=== PATIENT | female | born 1955 | race Caucasian/White ===

== ENCOUNTER 2016-08-28 14:04 | Observation (INO) | payer OTHER ==
[~2016-08-28] VITALS: Ht 177.8 cm; Wt 105.1 kg
--- NOTE | 2016-08-28 14:05 | ED.REPORT ---
HPI-Stroke / CVA Aug 28, 2016 ED Provider: MD Stephan This is a 60 year old with a history of hypertension and asthma female with a history of double vision presenting to the emergency department via EMS due to double vision that began 2 hours ago. Pt lunch when she developed sudden onset double vision, denies blurry vision. Double vision is significantly improved in the ED but there is some residual vision changes. Last known normal at 1215. Denies nausea, lightheadedness, dizziness, change LOC, problem walking, numbness or tingling in extremities, facial droop, or slurred speech. Nursing Notes Stated Complaint: POSSIBLE STROKE Nursing Notes Reviewed: Yes Allergies: Coded Allergies: Sulfa (Sulfonamide Antibiotics) (Verified Allergy, Intermediate, Hives, 08/28/16) morphine (Verified Adverse Reaction, Severe, N/V, 04/24/09) cephalexin (Verified Adverse Reaction, Intermediate, Nausea,Vomiting, ) Scheduled Cyanocobalamin (Vitamin B12) 500 Mcg Tablet 500 MCG PO DAILY (Reported) Estradiol (Estradiol) 0.5 Mg Tablet 0.5 MG PO DAILY (Reported) Magnesium Amino Acid Chelate (Magnesium) 100 Mg Tablet 100 MG PO DAILY (Reported ) Magnesium Citrate (Magnesium Citrate) 100 Mg Tablet 100 MG PO DAILY (Reported) Metoprolol Succinate ER (Metoprolol Succinate ER) 25 Mg Tab.er.24h 50 MG PO DAILY (Reported) Multivitamin (Once Daily) 1 Each Tablet 1 EACH PO DAILY (Reported) Potassium Chloride ER (Potassium Chloride ER) 20 Meq Tablet.er 20 MEQ PO DAILY ( Reported) TAKE WITH FOOD Scheduled PRN Acetaminophen (Acetaminophen) 325 Mg Tablet 650 MG PO Q4H PRN PRN For Pain ( Reported) Albuterol HFA (Proair HFA) 8.5 Gm Hfa.aer.ad 2 PUFFS INHALATION Q4H PRN PRN For Shortness of Breath (Reported) Loratadine (Claritin) 10 Mg Capsule 10 MG PO DAILY PRN PRN For Congestion ( Reported) Propylene Glycol/Peg 400 (Systane Liquid Gel Eye Drops) 15 Ml Drp.lq.gel 2 DROP OP BID PRN PRN For Eye Irritation (Reported) General Time Seen by Provider: 14:02 Chief Complaint Vision, double Hx Obtained From: Patient, EMS Arrived By: Ambulance Time last known well 1215 Sudden in Onset?: Yes Symptom Duration: Since onset Progression Since Onset: Gradually improving Severity: Current: No pain currently Pertinent Negative: Pt denies other symptoms Recent Healthcare: No recent doctor visit, No recent hospitalization Similar Sx Previous: No Risk Factors )( TPA Administration/Criteria Stroke Thrombolytic Therapy : TPA Considered: Yes TPA Administered Intravenously: No, not indicated Relative Exclusion Crit: Rapidly improv stroke sym NIH Stroke Scale Level of Consciousness: Alert and responsive (0) Ask Month & Age: Both questions right (0) Open/Close Eyes/Hand Platform Stapler: Performs both tasks (0) Horizontal EO Movements: None (0) Visual Crowe: No visual loss (0) Facial Palsy: Normal symmetry (0) Right Arm Motor Drift (10s): No drift 10 sec (0) Left Arm Motor Drift (10s): No drift 10 sec (0) Right Leg Motor Drift (5s): No drift 5 sec (0) Left Leg Motor Drift (5s): No drift 5 sec (0) Limb Ataxia FNF/Heel-Lane: No ataxia (0) Sensation (Arms/Legs/Face): No sensory loss (0) Language Aphasia: No aphasia, normal (0) Dysarthria: No dysarthria, normal (0) Extinction/Inattention: No exctinct/inattent (0) Time NIHSS Performed: 14:17 Date NIHSS Performed: Aug 28, 2016 Jackson Coma Score > Age 5 Eye Opening: Open spontaneously (4) Verbal Response: Oriented (5) Motor Response: Obeys commands (6) Jackson Coma Score: 15 Past Medical History Past Medical History Reports: Asthma, Hypertension Past Surgical History Hysterectomy Ambulatory Status Independent Review of Systems Constitutional: Denies: Chills, Fever Eyes: Reports: Blurred bilateral GI: Denies: Abdominal pain, Nausea, Vomiting Neurologic: Denies: Change LOC, Confusion, Dizziness, Headache, Lightheaded, Numbness, Problem walking, Weakness Complete sys rev & neg: except as marked. Physical Exam Initial Vital Signs Vital Signs (First) Date Time Temp Pulse Resp B/P Pulse Ox O2 Delivery O2 Flow Rate FiO2 08/28/16 14:14 36.7 83 20 187/84 97 Room Air - Initial VS: Reviewed ENT: Mucous membranes moist, Conjunctiva normal, No scleral icterus Abdomen / GI: Soft, Non-tender, No guarding, No rebound, No distention Extremities: Vascular intact, Neuro intact, No swelling, No tenderness Skin: Warm, Dry, No cyanosis Psychiatric: Mood/affect normal, Behavior normal, Normal thought content General/Constitutional: Awake, Alert Head / Eyes: Normocephalic, PERRL, EOMI, No nystagmus, No periorbital redness, No photophobia Neck: Supple, Full range of motion, No swelling, Non-tender, No carotid bruit Respiratory / Chest: Breath sounds NL, Breath sounds = bilat, No respiratory distress, No rales, No rhonchi, No wheezing Cardiovascular: Heart rate NL, Regular rhythm, Heart sounds NL, No murmurs, Peripheral circulation NL Neurologic: Oriented X3, Speech NL, No motor deficits, No sensory deficits, CN II - XII intact, Reflexes equal bilat, Cerebellar NL Interpretation & Diagnostics Interpretation & Diagnostics: BRAIN CT IMPRESSION: No acute process. Findings relayed to Dr. Rothman via ER front end developer designer staff Mihaela on 08.28.16 at 1415 hrs. This study fulfills neurological imaging criteria for inclusion or exclusion of acute stroke therapies based on available published neurological guidelines. Dictated by: Miguel Thomson M.D. on 08/28/2016 at 14:14 Approved by: Miguel Thomson M.D. on 08/28/2016 at 14:15 CT ANGIO IMPRESSION: 1. No intracranial vascular occlusion or hemodynamically significant stenosis. 2. Atherosclerotic calcifications noted in the origin of the right internal carotid artery which do not cause measurable stenosis. 3. The left internal carotid artery is fully patent. Dictated by: Josephine Mckinney MD, PhD on 08/28/2016 at 15:55 Approved by: Josephine Mckinney MD, PhD on 08/28/2016 at 16:03 Lab Results Interpretation Result Diagram: 08/28/16 1509 08/28/16 1509 Test 08/28/16 15:09 White Blood Count 7.0th/mm3 (3.8-10.1) Red Blood Count 4.53mil/mm3 (3.90-5.20) Hemoglobin 14.0g/dL (12.0-15.6) Hematocrit 41.1% (35.0-46.0) Mean Corpuscular Volume 90.7fL (81-100) Mean Corpuscular Hemoglobin 30.9pg (27.0-35.0) Mean Corpuscular Hemoglobin Concent 34.1% (32.0-37.0) Red Cell Distribution Width 12.0% (12.3-15.4) Platelet Count 218bil/L (150-400) Neutrophils (%) (Auto) 81.1% (40-74) Lymphocytes (%) (Auto) 11.5% (14-46) Monocytes (%) (Auto) 6.3% (4-12) Eosinophils (%) (Auto) 0.9% (0-5) Basophils (%) (Auto) 0.1% (0-3) Prothrombin Time 9.7sec (8.1-12.5) Prothromb Time International Ratio 0.91ratio Activated Partial Thromboplast Time 25.7sec (22.8-33.0) Sodium Level 138mEq/L (134-144) Potassium Level 3.7mEq/L (3.5-5.2) Chloride Level 100mEq/L (97-108) Carbon Dioxide Level 25mmol/L (18-29) Blood Urea Nitrogen 16mg/dL (6-24) Creatinine 0.81mg/dL (0.57-1.00) Estimat Glomerular Filtration Rate 104mL/min (>59) Glucose Level 109mg/dL (60-99) Calcium Level 9.5mg/dL (8.5-10.1) Magnesium Level 2.0mg/dL (1.6-2.6) Total Bilirubin 0.4mg/dL (0.0-1.2) Aspartate Amino Transf (AST/SGOT) 20U/L (0-50) Alanine Aminotransferase (ALT/SGPT) 18U/L (0-32) Alkaline Phosphatase 133U/L (25-165) Troponin T 0.023ug/L (0.0-0.011) Total Protein 7.2g/dL (6.4-8.4) Albumin 4.3g/dL (3.4-5.0) Hold Olivas Top Tube Received (Received) ECG Interpretation ECG Interpretation: NSR at rate of 70 Time: 15:37 Interpreted by: ED physician Re-Eval/Medical Decision Med Decision/Clinical Course 60-year-old female presenting with diplopia sudden onset or eating lunch. She presented within 2 hours and code stroke was called immediately. Her only neuro deficits on arrival was diplopia. It improved by arrival. CT head no hemorrhage. NIHSS 0. I consulted [place] neurology who recommended no TPA due to low NIH stroke scale. Recommended CT angiogram brain and neck which showed no acute pathology. Labs unremarkable. Patient's symptoms resolved while in the ER. Will be admitted for TIA, diplopia. Also troponins were mildly elevated 0.02. EKG no signs ischemia. We will trend. Given aspirin. Re-Evaluation/Progress : Time of Eval: 16:04 )( Re-Eval Neurologic Exam: Alert, Pt is back to baseline, Oriented X3, CN II - XII intact, Speech normal, No motor deficits, No sensory deficits, Reflexes equal bilat, Cerebellar normal Re-Evaluation/Progress Note: Symptoms are resovled. Pt at baseline, double vision is resolved. Discussed need for admission, pt understands and agrees with plan, all questions addressed. Consultation #1: Call Returned at: 14:24 Note: Consult with [place], Dr. Yoanna Yates does not recommend TPA, plan for CTA. Consultation #2: Referral / Consult Name: Niko Polanco MD Consulted With: Hospitalist Call Returned at: 16:42 Final Inspector Balance Wheel: Accepts admit Counseled Regarding: Diagnosis, Lab results, Need for follow-up, Need for admission Patient Discharge & Departure Impression: Primary Impression: TIA (transient ischemic attack) Transient cerebral ischemia type: unspecified Qualified Code: G45.9 - Transient cerebral ischemic attack, unspecified Additional Impressions: Diplopia Elevated troponin Disposition: ADMITTED TO HOSPITAL Discharge Condition All VS Reviewed: Yes Condition: Stable Referrals: Julio Pineda MD (PCP) Crit Care Except Billable Proc Time Spent: 30-74 minutes Services Performed: Patient management by me, Time spent at bedside, Reviewing test results, Reviewing imaging, Discussing patient care, Documentation in record, Time with fam/surrogate Scribe Attestation Portions of this note were transcribed by Alex Echeverria. I, Dr. Rothman personally performed the history, physical exam and medical decision-making; I reviewed and confirmed the accuracy of the information in the transcribed note. Signed by: jeremy Espinoza. 08/28/2016, 15:00. Bennett Rothman MD Aug 28, 2016 14:05 ALEX ECHEVERRIA 2, 2017 14:15
[2016-08-28 14:14] VITALS: BP 187/84; PULSE 83; RESP 20; O2SAT 97
--- NOTE | 2016-08-28 14:17 | DRSVH ---
PROCEDURE: CT BRAIN (TPA) ([id number]) INDICATIONS: Stroke TECHNIQUE: Noncontrast 4.5 mm thick angled axial sections acquired from the foramen magnum to the vertex, with c oronal reformats. COMPARISON: None. FINDINGS: Image quality: Excellent. CSF spaces: Basal cisterns are patent. No extra-axial fluid collections. The ventricles are symmet heber in size and shape. Brain: No intracranial bleeds or masses. There is cerebral volume loss for age, with resultant vent ricular and sulcal prominence. There are periventricular and deep white matter chronic small vessel ischemic changes. There is intracranial internal carotid artery atherosclerosis. Skull and face: Calvarium and visualized facial bones appear intact, without suspicious lesions. Sinuses: Visualized sinuses and mastoids are clear. IMPRESSION: No acute process. Findings relayed to Dr. Rothman via ER front maker staff Mihaela on 08.28.16 at 1415 hrs. This study fulfills neurological imaging criteria for inclusion or exclusion of acute stroke therapie s based on available published neurological guidelines. Dictated by: Miguel Thomson M.D. on 08/28/2016 at 14:14 Approved by: Miguel Thomson M.D. on 08/28/2016 at 14:15
--- NOTE | 2016-08-28 15:27 | NUR ---
Evaluation completed. Please go to "Notes" then click on "Assessments and Notes" (bottom left corner of screen). Then select appropriate discipline tab on top of screen.
[2016-08-28 15:32] LABS: BASOPHILS % (AUTO) 0.1 % (0-3); EOSINOPHILS % (AUTO) 0.9 % (0-5); MONOCYTES % (AUTO) 6.3 % (4-12); Mean Corpuscular Hemoglobin 30.9 pg (27.0-35.0); Mean Corpuscular Volume 90.7 fL (81-100); NEUTROPHILS % (AUTO) 81.1 % (40-74); Platelet Count 218 bil/L (150-400)
[2016-08-28 15:36] LABS: INR 0.92 ratio
[2016-08-28 15:38] LABS: TROPONIN T 0.023 ug/L (0.0-0.011)
[2016-08-28 15:58] VITALS: BP 167/80; PULSE 73; RESP 20; O2SAT 98
--- NOTE | 2016-08-28 16:05 | DRSVH ---
PROCEDURE: CT ANGIO BRAIN NECK TPA INDICATIONS: STAT READ - CALL ED PROVIDER W/RESULTS TECHNIQUE: Pre-contrast 4.5 mm thick sections acquired from the foramen magnum to the vertex. After the adminis tration of intravenous contrast, 1 mm thick sections acquired from the aortic arch through the [place]. Post-contrast 4.5 mm thick sections then re-acquired from the foramen magnum to the vert ex. 3-dimensional ojkmotn-vdcduafot-jlbraffuqe (MIP) and/or volume rendering reformats were acquired of the central intracranial vasculature and neck separately. For radiation dose reduction, the foll owing was used: automated exposure control, adjustment of mA and/or kV according to patient size. COMPARISON: [facility], CT, BRAIN (TPA), 08/28/2016, 14:08. FINDINGS: Image quality: Excellent. BRAIN: CSF spaces: Ventricles are normal in size and shape. Basal cisterns are patent. No extra-axial flu id collections. Brain: No midline shift. No intracranial bleeds or masses. [place]bitt-white matter interface appears int act. Skull and face: Calvarium and facial bones appear intact, without suspicious lesions. Orbits appear normal. Sinuses: Sinuses and mastoids are clear. HEAD CT ANGIOGRAPHY: Anterior circulation: Intracranial internal carotid arteries are normal in size and flow. The flow within the paired anterior cerebral arteries is normal and symmetric. The flow within the middle cer ebral arteries is normal and symmetric. The anterior communicating artery is seen. No aneurysms are seen. Posterior circulation: Visualized portions of the vertebral arteries demonstrate normal caliber, and join to form a normal appearing basilar artery. Flow within the posterior cerebral arteries is norm al and symmetric. 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 No aneurysms are seen. NECK CT ANGIOGRAPHY: Carotid system: The great vessels demonstrate a conventional anatomy as they arise from the aortic a rc. The origins of the common carotid arteries appear patent. The common carotid arteries demonstr ate normal caliber and courses. The bifurcation regions are both widely patent. Atherosclerotic calc ification noted in the origin of the right internal carotid artery which does not cause measurable st enosis. Incidental note made of bilateral internal carotid pharyngeal loops. Posterior circulation: The origins of the vertebral arteries both appear widely patent. The more ramirez perior extracranial portions of both vertebral arteries also demonstrate normal courses and calibers. They join to form a normal appearing basilar artery. Soft tissues: Visualized neck soft tissues demonstrate no suspicious abnormalities. Bones: No suspicious bony lesions. Degenerative disc disease and facet arthropathy are noted in the cervical spine. Visualized cervical spine appears normally aligned. IMPRESSION: 1. No intracranial vascular occlusion or hemodynamically significant stenosis. 2. Atherosclerotic calcifications noted in the origin of the right internal carotid artery which do n ot cause measurable stenosis. 3. The left internal carotid artery is fully patent. Dictated by: Josephine Mckinney MD, PhD on 08/28/2016 at 15:55 Approved by: Josephine Mckinney MD, PhD on 08/28/2016 at 16:03
[2016-08-28] MEDS ORDERED: Alum-Mag Hydrox-Simeth 30 mL Suspension PO PRN (16:45)
[2016-08-28] MEDS ORDERED: Polyethylene Glycol (PEG) 17 Gm Powder PO PRN (16:45)
[2016-08-28] MEDS ORDERED: Labetalol 5 mg/mL 4 mL Inj IVPUSH PRN (16:45)
[2016-08-28] MEDS ORDERED: Ondansetron 2 mg/mL 2 mL Inj IV PRN (16:45)
[2016-08-28] MEDS ORDERED: LORA10CA PO (16:49)
[2016-08-28] MEDS ORDERED: POTA-62 PO (16:49)
[2016-08-28] MEDS ORDERED: MULT-666 PO (16:49)
[2016-08-28] MEDS ORDERED: ESTR0.5T PO (16:49)
[2016-08-28] MEDS ORDERED: ACET325T51 PO (16:49)
[2016-08-28] MEDS ORDERED: MAGN100T5 PO (16:49)
[2016-08-28] MEDS ORDERED: CYAN500 PO (16:49)
[2016-08-28] MEDS ORDERED: METO25TA99 PO (16:49)
[2016-08-28] MEDS ORDERED: MAGN100T6 PO (16:50)
[2016-08-28] MEDS ORDERED: PROP15DR27 OP (16:50)
[2016-08-28] MEDS ORDERED: ALBU8.5H2 INHALATION (16:58)
[2016-08-28 17:13] LABS: INR 0.91 ratio
--- NOTE | 2016-08-28 17:13 | NUR ---
Admit nurse note Admission assessment completed in the ER. Pt. denies complaints at present. States she had a sudden onset of blurred/double vision and lightheadedness while she was sitting down for lunch. PT. is concerned about a stroke as she recently changed her estrogen due to insurance coverage change. Allergies updated and sticker placed on nameband. MEd rec completed per pt recall and PCP list. Pt. is normally independent and lives at home with her . Declines advance directives information and flu shot. Report given to Michelle Green.
--- NOTE | 2016-08-28 17:22 | NUR ---
Admit Pt admitted from ED to [facility] room 3005, report received from Steph Suarez RN. Pt alert and oriented x4, able to transfer self to bed, steady gait observed. Reported by ED swallow evaluation by speech therapy was completed, and general diet was ordered.
[2016-08-28 17:25] VITALS: PULSE 68
[2016-08-28 17:35] VITALS: BP 152/70; PULSE 65; RESP 18; O2SAT 98
[2016-08-28 19:20] LABS: APPEARANCE,URINE CLEAR (CLEAR,HAZY); COLOR,URINE YELLOW (YELLOW)
[2016-08-28 19:21] LABS: OCCULT BLOOD,URINE NEGATIVE (NEGATIVE); UROBILINOGEN,URINE NORMAL (NORMAL)
[2016-08-28 20:00] VITALS: PULSE 70
--- NOTE | 2016-08-28 20:39 | PCM.HPMED ---
Subjective Date of Service Aug 28, 2016 Primary Provider: Admitting Physician: Niko Polanco MD Primary Care Physician: Mari Cameron MD Attending Physician: Niko Polanco MD Chief Complaint: Possible stroke, sudden onset diplopia History of Present Illness: 60 year old with a history of hypertension and asthma female with a history of double vision presenting to the emergency department via EMS due to double vision that began 2 hours ago. Pt lunch when she developed sudden onset double vision, denies blurry vision. Double vision is significantly improved in the ED but there is some residual vision changes. Last known normal at 1215. Denies nausea, lightheadedness, dizziness, change LOC, problem walking, numbness or tingling in extremities, facial droop, or slurred speech. Patient tells me she was feeling fine up until lunch time, she got a couple bites into her soup and suddenly felt extremely strange. She had a visual disturbance. She tried covering one eye and then the other to see if that would change think she stated it did not do anything. She became extremely anxious felt like her heart was pounding. And called her primary doctor who sent her to the urgent care. Urgent care hurt her story in [place] directly to the emergency room. By this point in time most of her symptoms were dissipating. I told her in the future that if she thought she was having a stroke which she thought she was she should go directly to the emergency room. Review of Systems: Gen.: No fevers chills weight loss weight gain Eyes: Visual disturbance as described above HEENT: No nose/throat drainage, no pain in ears or throat, no hearing loss Lymph: No lymph nodes noted Cardiac: No chest pain, orthopnea, PND, palpitations , pedal edema or dyspnea on exertion, heart pounding during the event Pulmonary: no cough, wheezing or bringing up of sputum GI: No anorexia nausea vomiting blood or black in the stool : no dysuria hematuria urinary frequency or decrease in urine output Musculoskeletal: Joint swelling no joint pain no new muscle aches or back pain Neuro: No syncope, seizures no loss of consciousness no new focal weakness, numbness or tingling Psychiatric: New new insomnia or depression, anxiety during the event Endocrine: No new heat or cold intolerances polyuria or polydipsia Hematology: No lymphadenopathy or easy bleeding or bruising noted skin: No new rashes, stasis dermatitis Allergies Coded Allergies: Sulfa (Sulfonamide Antibiotics) (Verified Allergy, Intermediate, Hives, 08/28/16) morphine (Verified Adverse Reaction, Severe, N/V, 04/24/09) cephalexin (Verified Adverse Reaction, Intermediate, Nausea,Vomiting, ) Home Medications Cyanocobalamin (Vitamin B12) 500 Mcg Tablet 500 MCG PO DAILY (Reported) Estradiol (Estradiol) 0.5 Mg Tablet 0.5 MG PO DAILY (Reported) Magnesium Amino Acid Chelate (Magnesium) 100 Mg Tablet 100 MG PO DAILY (Reported ) Magnesium Citrate (Magnesium Citrate) 100 Mg Tablet 100 MG PO DAILY (Reported) Metoprolol Succinate ER (Metoprolol Succinate ER) 25 Mg Tab.er.24h 50 MG PO DAILY (Reported) Multivitamin (Once Daily) 1 Each Tablet 1 EACH PO DAILY (Reported) Potassium Chloride ER (Potassium Chloride ER) 20 Meq Tablet.er 20 MEQ PO DAILY ( Reported) TAKE WITH FOOD Scheduled PRN Acetaminophen (Acetaminophen) 325 Mg Tablet 650 MG PO Q4H PRN PRN For Pain ( Reported) Albuterol HFA (Proair HFA) 8.5 Gm Hfa.aer.ad 2 PUFFS INHALATION Q4H PRN PRN For Shortness of Breath (Reported) Loratadine (Claritin) 10 Mg Capsule 10 MG PO DAILY PRN PRN For Congestion ( Reported) Propylene Glycol/Peg 400 (Systane Liquid Gel Eye Drops) 15 Ml Drp.lq.gel 2 DROP OP BID PRN PRN For Eye Irritation (Reported) [facility] Patient reports she sees a drug enforcement administration agent Dr. Pettit (?sp) in [place]. She tells me that she takes metoprolol not for high blood pressure but for low heart rate and since she has been on this medication she is actually felt better. I wonder if she does not have tachybradycardia syndrome Asthma, Hypertension Past Surgical History Hysterectomy Ambulatory Status Independent Social Patient is a nonsmoker occasional drinker Family history positive for breast cancer in her mother in her 70s and her father had a CVA in his 70s Social History Hx Alcohol Use: No Hx Substance Use: No Exam Vital Signs Vital Sign - Last Date Time Temp Pulse Resp B/P Pulse Ox O2 Delivery O2 Flow Rate FiO2 08/28/16 17:35 37.0 65 18 152/70 98 Room Air Exam Gen.- A+ O 3 no apparent distress. Heavyset female with blue hair sitting up in Eyes- open conjunctiva clear, pupils equal nonicteric, pupils equal and reactive extraocular muscles intact, vision intact at this time Mouth- oral mucosa moist, no exudate, dentition intact ENT- ears normal, nose normal Neck- supple/trach midline CVS- RRR no murmur or gallop Lungs- CTA GI- NABS/NT soft Musc- moving 4 no obvious deformity Neuro- cranial nerves II through XII intact to gross examination, nonfocal Skin- warm and dry, no rashes/lesions/wounds noted Psych- pleasant and appropriate, Lab and Diagnostics Labs UA clear, troponin 0.023, magnesium 2.0, LFTs WNL Result Diagram: 08/28/16 1509 08/28/16 1509 12-lead ECG EKG concurrently reviewed by me sinus with a rate of 70 QTc 418 ms Assessment & Plan 60-year-old female so than onset diplopia normal CT scan working up TIA Diplopia/TIA- starting aspirin, statin allowing permissive hypertension, echo , telemetry PT eval, lipids in a.m. along with TSH monitor for potential A. fib Elevated agzarqfm-swgihv-pr trops., EKG is absolutely normal no cardiac complaints no dyspnea no chest pain. Second troponin is in higher at 0.34 I am getting CK+ CK/MB as patient is absolutely no cardiac symptoms and her EKG looked so benign that it seems that this is almost certainly a false positive. Echocardiogram being obtained to get TIA workup but I am not getting stress testing at this point in time will allow a.m. team to decide whether this is warranted. HTN- holding home metoprolol continue when necessary labetalol SBP greater than 220, permissive hypertension Estrogen replacement- holding secondary to possible hypercoagulable state Allergies- loratadine not ordered Prophylaxis-DVT patient has SCDs I am not feeling that she needs heparin I think she is ambulatory and going to discharge tomorrow, GI not indicated Disposition- from home full code I am expecting this patient to discharge home tomorrow after echocardiogram is normal. I am expecting normal CK and CK-MB and hopefully troponins normalize and do not require any further investigation.. I am not even certain that I think she should be on an aspirin although that is the simplest intervention to treat both possible TIA and positive cardiac enzyme. I am not ordering an MRI at this point in time as her symptoms seem to have totally resolved and she does not have risk factors my only other concern is that this could be an early manifestation of MS. This was not discussed with her. VTE Mechanical Devices: Intermittant Pneumatic CD Niko Polanco MD Aug 28, 2016 20:39
[2016-08-28] MEDS ORDERED: Artificial Tears 15 mL Ophthalmic Solution BOTH_EYES PRN (20:40)
[2016-08-28 21:18] VITALS: BP 149/85; PULSE 65; RESP 18; O2SAT 97
[2016-08-28 22:50] LABS: TROPONIN T 0.037 ug/L (0.0-0.011)
--- NOTE | 2016-08-28 23:38 | NUR ---
Critical Troponin Patient's second troponin came back at 0.037, up from 0.023. paged, new order for stat EKG, and to add CKMB labs to ordered Troponin labs, starting with the 2130 order. Orders entered. EKG showed sinus rhythm, 67. technical specialist cytogenetics reports no ectopy. Vital signs stable, patient denies chest pain, palpitations, shortness of breath. Patient updated on lab value. Will continue to monitor.
[2016-08-29] VITALS (7 sets, daily range): BP systolic 130–150; BP diastolic 76–86; PULSE 57–78; RESP 14–19; O2SAT 95–99
[2016-08-29 05:45] LABS: BASOPHILS % (AUTO) 0.3 % (0-3); EOSINOPHILS % (AUTO) 2.3 % (0-5); MONOCYTES % (AUTO) 7.8 % (4-12); Mean Corpuscular Hemoglobin 31.2 pg (27.0-35.0); Mean Corpuscular Volume 91.8 fL (81-100); NEUTROPHILS % (AUTO) 68.5 % (40-74); Platelet Count 218 bil/L (150-400)
[2016-08-29 06:45] LABS: Creatine Kinase 69 U/L (21-215)
[2016-08-29] MEDS ORDERED: Albuterol 2.5 mg/3 mL Inhalation Solution NEB PRN (07:00)
[2016-08-29] MEDS: Potassium Chloride 20 mEq SR Tablet PO SCH (08:18)
--- NOTE | 2016-08-29 08:27 | NUR ---
Social Work: Screening Data: Pt is a 60 y/o female admitted for TIA, elevated troponin. Pt's PCP is Dr Cameron, pt's insurance is [employer]. EMR reviewed. Pt declines AD/DPOA, declined information offered. No d/c planning needs anticipated at this time. 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 Assessment: Pt who is independent at baseline. Plan: Pt will d/c home via POV when medically stable. No d/c planning needs anticipated at this time. 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 ROBEL Marley
--- NOTE | 2016-08-29 13:58 | DRSVH ---
PROCEDURE: MRI BRAIN WITHOUT CONTRAST ([id number]) INDICATIONS: TIA TECHNIQUE: Non-contrast axial T1 spin echo, axial T2 fast spin echo, sagittal and axial FLAIR, coronal T2 fast s pin echo, axial gradient echo, axial diffusion and ADC through the brain. COMPARISON: [facility], CT, CT ANGIO BRAIN NECK TPA, 08/28/2016, 15:19. FINDINGS: Image quality: Excellent. CSF spaces: Ventricles appear symmetric in size and shape. Basal cisterns are patent. No extra-axi al fluid collections. Brain: No intracranial bleeds or mass effects. There is cerebral volume loss for age. There is a m ild degree of patchy high FLAIR signal within the periventricular and subcortical white matter, which is nonspecific. Brainstem appears normal. Diffusion-weighted images show no acute ischemic insults. No chronic ischemic insults. Normal intravascular flow voids are present. Skull and face: Calvarial bone marrow is normal in signal. Orbits are normal. Sinuses: Sinuses and mastoids are clear. IMPRESSION: 1. No acute process. No recent infarct. 2. Mild degree of nonspecific white matter signal, consistent with small vessel ischemic disease, vas culitides, diabetes mellitus, or demyelinating disorders, such as multiple sclerosis. Dictated by: Miguel Thomson M.D. on 08/29/2016 at 13:55 Approved by: Miguel Thomson M.D. on 08/29/2016 at 13:57
[2016-08-29 15:05] LABS: TROPONIN T < 0.010 ug/L (0.0-0.011)
[2016-08-29 15:14] LABS: Creatine Kinase 63 U/L (21-215)
--- NOTE | 2016-08-29 16:31 | NUR ---
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 She was pleasant and conversational but stated no spiritual needs at this time. Spiritual care will follow if needed.
--- NOTE | 2016-08-29 20:34 | PCM.PNMED ---
Subjective Date of Service Aug 29, 2016 Subjective Patient is a 60 year-old female chronically on estrogen who came in after having a period of blurry vision which resolved. This morning she states that she is feeling back to normal. Her blurry vision actually had resolved yesterday. She denies any dizziness, vision changes, nausea, diarrhea, confusion. Exam Vital Signs Vital Sign - Last Date Time Temp Pulse Resp B/P Pulse Ox O2 Delivery O2 Flow Rate FiO2 08/29/16 17:42 36.7 70 16 130/76 95 Room Air Intake and Output 08/28/16 08/28/16 08/29/16 Cumulative From/Thru 15:00 23:00 07:00 08/28/16 14:14 - 08/29/16 06:26 Intake Total 120 ml 400 ml 520 ml Output Total 200 ml 1000 ml 1200 ml Balance -80 ml -600 ml -680 ml Intake Oral 120 ml 400 ml 520 ml Output Urine Total 200 ml 1000 ml 1200 ml # Voids 1 1 # Bowel Movements 0 0 Exam General: Pleasant, obese, in bed in no acute distress HEENT: PERRL, EOMI, sclera anicteric CV: regular rate and rhythm, pulses equal B/L radial and posterior tibial Pulmonary: clear to auscultation B/L, no wheezing, rhonchi or rales Abd: soft, non-tender, bowel sounds present Extremities: no LE edema, no calf tenderness Neuro: CN II-XII intact, no limb ataxia, sensation intact to light touch, 5/5 strength UE & LE and equal B/L. Psych: Appropriate mood and effect . IVs and Medications Medications Reviewed: Medications were reviewed in detail Lab and Diagnostics Result Diagram: 08/29/16 0535 08/29/16 0535 X-Rays, CTs and MRIs 08/28/16 CT BRAIN (TPA) ([id number]) INDICATIONS: Stroke TECHNIQUE: Noncontrast 4.5 mm thick angled axial sections acquired from the foramen magnum to the vertex, with coronal reformats. COMPARISON: None. FINDINGS: Image quality: Excellent. CSF spaces: Basal cisterns are patent. No extra-axial fluid collections. The ventricles are symmetric in size and shape. Brain: No intracranial bleeds or masses. There is cerebral volume loss for age , with resultant ventricular and sulcal prominence. There are periventricular and deep white matter chronic small vessel ischemic changes. There is intracranial internal carotid artery atherosclerosis. Skull and face: Calvarium and visualized facial bones appear intact, without suspicious lesions. Sinuses: Visualized sinuses and mastoids are clear. IMPRESSION: No acute process. Findings relayed to Dr. Rothman via ER front end loader driver staff Mihaela on 08.28.16 at 1415 hrs. This study fulfills neurological imaging criteria for inclusion or exclusion of acute stroke therapies based on available published neurological guidelines. Dictated by: Miguel Thomson M.D. on 08/28/2016 at 14:14 Approved by: Miguel Thomson M.D. on 08/28/2016 at 14:15 08/28/16 CT ANGIO BRAIN NECK TPA INDICATIONS: STAT READ - CALL ED PROVIDER W/RESULTS TECHNIQUE: Pre-contrast 4.5 mm thick sections acquired from the foramen magnum to the vertex. After the administration of intravenous contrast, 1 mm thick sections acquired from the aortic arch through the [place]. Post-contrast 4.5 mm thick sections then re-acquired from the foramen magnum to the vertex. 3- dimensional hlskrkb-ihiizkwii-wtwwwgknuw (MIP) and/or volume rendering reformats were acquired of the central intracranial vasculature and neck separately. For radiation dose reduction, the following was used: automated exposure control, adjustment of mA and/or kV according to patient size. COMPARISON: [facility], CT, BRAIN (TPA), 08/28/2016, 14:08. FINDINGS: Image quality: Excellent. BRAIN: CSF spaces: Ventricles are normal in size and shape. Basal cisterns are patent. No extra-axial fluid collections. Brain: No midline shift. No intracranial bleeds or masses. [place]-white matter interface appears intact. Skull and face: Calvarium and facial bones appear intact, without suspicious lesions. Orbits appear normal. Sinuses: Sinuses and mastoids are clear. HEAD CT ANGIOGRAPHY: Anterior circulation: Intracranial internal carotid arteries are normal in size and flow. The flow within the paired anterior cerebral arteries is normal and symmetric. The flow within the middle cerebral arteries is normal and symmetric. The anterior communicating artery is seen. No aneurysms are seen. Posterior circulation: Visualized portions of the vertebral arteries demonstrate normal caliber, and join to form a normal appearing basilar artery. Flow within the posterior cerebral arteries is normal and symmetric. 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 No aneurysms are seen. NECK CT ANGIOGRAPHY: Carotid system: The great vessels demonstrate a conventional anatomy as they arise from the aortic arch. The origins of the common carotid arteries appear patent. The common carotid arteries demonstrate normal caliber and courses. The bifurcation regions are both widely patent. Atherosclerotic calcification noted in the origin of the right internal carotid artery which does not cause measurable stenosis. Incidental note made of bilateral internal carotid pharyngeal loops. Posterior circulation: The origins of the vertebral arteries both appear widely patent. The more superior extracranial portions of both vertebral arteries also demonstrate normal courses and calibers. They join to form a normal appearing basilar artery. Soft tissues: Visualized neck soft tissues demonstrate no suspicious abnormalities. Bones: No suspicious bony lesions. Degenerative disc disease and facet arthropathy are noted in the cervical spine. Visualized cervical spine appears normally aligned. IMPRESSION: 1. No intracranial vascular occlusion or hemodynamically significant stenosis. 2. Atherosclerotic calcifications noted in the origin of the right internal carotid artery which do not cause measurable stenosis. 3. The left internal carotid artery is fully patent. Dictated by: Josephine Mckinney MD, PhD on 08/28/2016 at 15:55 Approved by: Josephine Mckinney MD, PhD on 08/28/2016 at 16:03 12-lead ECG EKG concurrently reviewed by nj sinus with a rate of 70 QTc 418 ms Assessment & Plan Patient is a 60 year-old female chronically on estrogen who came in after having a period of blurry vision which resolved. 1. TIA, resolved by admission - Likely secondary to her chronic use of estrogen since having a hysterectomy in her 30s. No diabetes, never smoker, no strokes in family, denies dyslipidemia - This morning physical neuro exam was unremarkable - CT showed no acute process - CTA brain and neck unremarkable - Brain MRI pending - Echocardiogram pending - Passed swallow evaluation - PT/OT assessment pending - A1c and lipids pending - D/C estrogen - Start statin - TSH normal then mildly elevated 2. Elevated troponin x1, present on admission, acute - Patient states that she is "high strung" and when her vision got blurry, she got very anxious and her heart started pounding - EKG normal - Only 1 of the 4 troponins were elevated, three were negative - Telemetry 3. Hypertension, present on admission, chronic - Allowing for permissive hypertension for first 24 hours with labetalol coverage greater than 220 - Will consider starting chlorthalidone 12.5 mg in the afternoon 4. History of hysterectomy, present on admission - Patient has taken estrogen for 25 years or so. She is 60 years old and is glad to stop taking it. 5. Allergies, present on admission, chronic - held Loratadine, she can restart when she discharges Expect discharge 08/30/16 to home with family Code status: full code VTE Prophylaxis: Sub-Q Heparin (Unfractionated) Resuscitation Status: CPR: Attempt Resuscitation Attending Statement The patient was seen and examined together with Dr. Manzano on 08/29/16 and I agree with the history, exam and plan as outlined in the note above. Marie Manzano DO Aug 29, 2016 20:34 Lindy Bradley DO Sep 07, 2016 17:39
[2016-08-29 21:13] LABS: TROPONIN T 0.01 ug/L (0.0-0.011)
[2016-08-30 00:19] VITALS: BP 133/81; PULSE 60; RESP 18; O2SAT 97
[2016-08-30] MEDS: Heparin 5,000 Unit/mL Inj SUBQ SCH ×2 (01:04→07:48)
[2016-08-30 05:43] VITALS: BP 154/81; PULSE 53; RESP 19; O2SAT 96
[2016-08-30 06:12] VITALS: PULSE 63
[2016-08-30 06:21] LABS: Mean Corpuscular Hemoglobin 31.1 pg (27.0-35.0); Mean Corpuscular Volume 92.1 fL (81-100)
[2016-08-30] MEDS: Potassium Chloride 20 mEq SR Tablet PO SCH (07:47)
[2016-08-30] MEDS ORDERED: MeTOProlol XL 50 mg ER24 Tablet PO SCH (09:24)
[2016-08-30 09:28] VITALS: BP 143/74; PULSE 64; RESP 18; O2SAT 97
[2016-08-30 10:03] VITALS: PULSE 65
[2016-08-30] MEDS ORDERED: MeTOProlol XL 25 mg ER24 Tablet PO SCH (10:25)
--- NOTE | 2016-08-30 10:46 | PCM.DIMED ---
Marie Manzano DO 08/30/16 1046: Discharge Instructions Date of Service Aug 30, 2016 Dates of Hospitalization Aug 28, 2016 at 17:05 Discharge Diagnosis Discharge Diagnosis 1. Multiple Sclerosis new diagnosis, present on admission, symptoms resolved 2. Elevated troponin x1, present on admission, Resolved, 3 negative troponins 3. Hypertension, present on admission, chronic 4. History of hysterectomy, present on admission 5. Allergies, present on admission, chronic Medication Instructions Please stop the estradiol. It is not recommended unless your symptoms are too bad without the estrogen. We do not think this was a mini stroke (TIA) but rather multiple sclerosis. Continue the metoprolol, but take 1/2 your usual dose. Diet No restrictions Activity No restrictions Call your provider Fever or Chills, Shortness of breath, Weakness (unilateral) Patient Instructions Please follow up with your primary care physician within the next couple of weeks. We were not able to make a neurology appointment for you, but that needs to be done, hopefully in the next 3 weeks. Call your insurance company to find out who they use. You can also call your primary care physician. [facility] is scheduled out until March. Dr. Jc, in [place], is usually able to see you sooner. I am not familiar with the other neurologists in the area. Follow-up plan See above. Follow-up Provider: Mari Cameron MD Follow-up with PCP in: 2 weeks Lindy Bradley DO 09/07/16 1740: Discharge Instructions Attending's Statement The patient was seen and examined together with Dr. Manzano on 08/30/16 and I agree with the history, exam and plan as outlined in the note above. Marie Manzano DO Aug 30, 2016 10:46 Lindy Bradley DO Sep 07, 2016 17:40
--- NOTE | 2016-08-30 10:53 | NUR ---
Social Work: Discharge Data: Pt is on day 2 of hospitalization. EMR reviewed. D/C orders are in. No d/c planning needs at this time. [facility] RESIDENT will continue to follow if needs arise. Assessment: Pt who is independent at baseline. Plan: Pt will d/c home via POV today. No d/c planning needs at this time. [facility] RESIDENT will continue to follow if needs arise. ROBEL Marley
[2016-08-30] MEDS ORDERED: METO25TA99 PO ×2 (11:25→12:03)
--- NOTE | 2016-08-30 12:15 | NUR ---
discharge went over discharge information, medications and follow up appointments with pt who verbally acknowledged understanding. Removed IV and tele. Patient left with her to vehicle. No s/s of distress at time of dc.
--- NOTE | 2016-08-30 16:36 | PCM.DC.MED ---
Discharge Summary Date of Service Aug 30, 2016 Dates of Hospitalization Date of Hospital Admission Aug 28, 2016 at 17:05 Date of Discharge: Aug 30, 2016 Providers: Admitting Physician: Niko Polanco MD Primary Care Physician: Mari Cameron MD Attending Physician: Niko Polanco MD Diagnosis at Time of Discharge Diagnosis at Time of Discharge 1. Multiple Sclerosis new diagnosis, present on admission, symptoms resolved 2. Elevated troponin x1, present on admission, Resolved, 3 negative troponins 3. Hypertension, present on admission, chronic 4. History of hysterectomy, present on admission 5. Allergies, present on admission, chronic Procedures XRay, CTs & MRIs 08/28/16 CT BRAIN (TPA) ([id number]) INDICATIONS: Stroke TECHNIQUE: Noncontrast 4.5 mm thick angled axial sections acquired from the foramen magnum to the vertex, with coronal reformats. COMPARISON: None. FINDINGS: Image quality: Excellent. CSF spaces: Basal cisterns are patent. No extra-axial fluid collections. The ventricles are symmetric in size and shape. Brain: No intracranial bleeds or masses. There is cerebral volume loss for age , with resultant ventricular and sulcal prominence. There are periventricular and deep white matter chronic small vessel ischemic changes. There is intracranial internal carotid artery atherosclerosis. Skull and face: Calvarium and visualized facial bones appear intact, without suspicious lesions. Sinuses: Visualized sinuses and mastoids are clear. IMPRESSION: No acute process. Findings relayed to Dr. Rothman via ER lockstitch front edge tape sewer staff Mihaela on 08.28.16 at 1415 hrs. This study fulfills neurological imaging criteria for inclusion or exclusion of acute stroke therapies based on available published neurological guidelines. Dictated by: Miguel Thomson M.D. on 08/28/2016 at 14:14 Approved by: Miguel Thomson M.D. on 08/28/2016 at 14:15 08/28/16 CT ANGIO BRAIN NECK TPA INDICATIONS: STAT READ - CALL ED PROVIDER W/RESULTS TECHNIQUE: Pre-contrast 4.5 mm thick sections acquired from the foramen magnum to the vertex. After the administration of intravenous contrast, 1 mm thick sections acquired from the aortic arch through the [place]. Post-contrast 4.5 mm thick sections then re-acquired from the foramen magnum to the vertex. 3- dimensional ngeowti-sqedfayyo-afbzubwopw (MIP) and/or volume rendering reformats were acquired of the central intracranial vasculature and neck separately. For radiation dose reduction, the following was used: automated exposure control, adjustment of mA and/or kV according to patient size. COMPARISON: [facility], CT, BRAIN ([facility]), 08/28/2016, 14:08. FINDINGS: Image quality: Excellent. BRAIN: CSF spaces: Ventricles are normal in size and shape. Basal cisterns are patent. No extra-axial fluid collections. Brain: No midline shift. No intracranial bleeds or masses. [place]-white matter interface appears intact. Skull and face: Calvarium and facial bones appear intact, without suspicious lesions. Orbits appear normal. Sinuses: Sinuses and mastoids are clear. HEAD CT ANGIOGRAPHY: Anterior circulation: Intracranial internal carotid arteries are normal in size and flow. The flow within the paired anterior cerebral arteries is normal and symmetric. The flow within the middle cerebral arteries is normal and symmetric. The anterior communicating artery is seen. No aneurysms are seen. Posterior circulation: Visualized portions of the vertebral arteries demonstrate normal caliber, and join to form a normal appearing basilar artery. Flow within the posterior cerebral arteries is normal and symmetric. 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 No aneurysms are seen. NECK CT ANGIOGRAPHY: Carotid system: The great vessels demonstrate a conventional anatomy as they arise from the aortic arch. The origins of the common carotid arteries appear patent. The common carotid arteries demonstrate normal caliber and courses. The bifurcation regions are both widely patent. Atherosclerotic calcification noted in the origin of the right internal carotid artery which does not cause measurable stenosis. Incidental note made of bilateral internal carotid pharyngeal loops. Posterior circulation: The origins of the vertebral arteries both appear widely patent. The more superior extracranial portions of both vertebral arteries also demonstrate normal courses and calibers. They join to form a normal appearing basilar artery. Soft tissues: Visualized neck soft tissues demonstrate no suspicious abnormalities. Bones: No suspicious bony lesions. Degenerative disc disease and facet arthropathy are noted in the cervical spine. Visualized cervical spine appears normally aligned. IMPRESSION: 1. No intracranial vascular occlusion or hemodynamically significant stenosis. 2. Atherosclerotic calcifications noted in the origin of the right internal carotid artery which do not cause measurable stenosis. 3. The left internal carotid artery is fully patent. Dictated by: Josephine Mckinney MD, PhD on 08/28/2016 at 15:55 Approved by: Josephine Mckinney MD, PhD on 08/28/2016 at 16:03 08/29/16 MRI BRAIN WITHOUT CONTRAST ([id number]) INDICATIONS: TIA TECHNIQUE: Non-contrast axial T1 spin echo, axial T2 fast spin echo, sagittal and axial FLAIR, coronal T2 fast spin echo, axial gradient echo, axial diffusion and ADC through the brain. COMPARISON: [facility], CT, CT ANGIO BRAIN NECK TPA, 08/28/2016, 15: 19. FINDINGS: Image quality: Excellent. CSF spaces: Ventricles appear symmetric in size and shape. Basal cisterns are patent. No extra-axial fluid collections. Brain: No intracranial bleeds or mass effects. There is cerebral volume loss for age. There is a mild degree of patchy high FLAIR signal within the periventricular and subcortical white matter, which is nonspecific. Brainstem appears normal. Diffusion-weighted images show no acute ischemic insults. No chronic ischemic insults. Normal intravascular flow voids are present. Skull and face: Calvarial bone marrow is normal in signal. Orbits are normal. Sinuses: Sinuses and mastoids are clear. IMPRESSION: 1. No acute process. No recent infarct. 2. Mild degree of nonspecific white matter signal, consistent with small vessel ischemic disease, vasculitides, diabetes mellitus, or demyelinating disorders, such as multiple sclerosis. Dictated by: Miguel Thomson M.D. on 08/29/2016 at 13:55 Approved by: Miguel Thomson M.D. on 08/29/2016 at 13:57 ECG 12 Lead EKG concurrently reviewed by ky sinus with a rate of 70 QTc 418 ms Cardiac Echo Impression Echocardiogram Report 08/29/2016 Interpretation Summary The left ventricle is normal in size, wall thickness, and systolic function without any focal wall motion abnormalities. The ejection fraction is estimated to be 60-65%. The right ventricle is normal in size, thickness and function. The left atrium is severely dilated. Right atrial size is normal. Injection of contrast documented no interatrial shunt. There is no significant valvular heart disease. The aortic root is normal size. Reading Physician: Brief History From history and physical by Dr. Polanco dated 08/28/16: 60 year old with a history of hypertension and asthma female with a history of double vision presenting to the emergency department via EMS due to double vision that began 2 hours ago. Pt lunch when she developed sudden onset double vision, denies blurry vision. Double vision is significantly improved in the ED but there is some residual vision changes. Last known normal at 1215. Denies nausea, lightheadedness, dizziness, change LOC, problem walking, numbness or tingling in extremities, facial droop, or slurred speech. Patient tells me she was feeling fine up until lunch time, she got a couple bites into her soup and suddenly felt extremely strange. She had a visual disturbance. She tried covering one eye and then the other to see if that would change think she stated it did not do anything. She became extremely anxious felt like her heart was pounding. And called her primary doctor who sent her to the urgent care. Urgent care hurt her story in [place] directly to the emergency room. By this point in time most of her symptoms were dissipating. I told her in the future that if she thought she was having a stroke which she thought she was she should go directly to the emergency room. . Hospital Course Patient is a 60 year-old female chronically on estrogen who came in after having a period of blurry vision which resolved. Initially it was expected that she had a TIA, especially with her chronic estrogen use. On the differential was multiple sclerosis. MRI showed Mild degree of nonspecific white matter signal, consistent with small vessel ischemic disease, vasculitides, diabetes mellitus, or demyelinating disorders, such as multiple sclerosis. On the day of discharge, patient stated that she forgot to tell us that she has Reynaud's syndrome and interstitial cystitis which points to a diagnosis of MS. Patient will need outpatient follow up with a neurologist. Attempted to make this appointment; however, [facility] does not have a new appointment until March 2017. Patient said that she would call insurance to find out who she can see. PCP to follow up on the referral. 1. Multiple sclerosis, new diagnosis, present on admission, symptoms resolved by admission - TIA suspected secondary to her chronic use of estrogen since having a hysterectomy in her 30s. Diagnosis changed to multiple sclerosis based on MRI -No diabetes, never smoker, no strokes in family, HDL 99. - Neuro exam remained unremarkable during hospital course - CT showed no acute process, CTA brain and neck unremarkable, MRI showed no ischemic event. - Started statin - Echocardiogram did not show valvular disease. See report above. D/C estrogen - A1c pending - Telemetry revealed no atrial fibrillation - TSH unremarkable - Brain MRI: Mild degree of nonspecific white matter signal, consistent with small vessel ischemic disease, vasculitides, diabetes mellitus, or demyelinating disorders, such as multiple sclerosis. - Patient then told us she has Reynaud's syndrome and interstitial cystitis - Follow up with neurology as outpatient for further work-up and management 2. Elevated troponin x1, present on admission, acute - EKG normal - Only 1 of the 4 troponins were elevated, three were negative - Telemetry 3. Hypertension, present on admission, chronic - Allowed for permissive hypertension for first 24 hours with labetalol coverage greater than 220 - Restarted her home beta holli before discharge 4. History of hysterectomy, present on admission - Patient has taken estrogen for 25 years or so. She is 60 years old and is actually glad to stop taking it because of the risk of stroke. 5. Allergies, present on admission, chronic - held Loratadine, she can restart when she discharges Exam Vital Signs (Last) Date Time Temp Pulse Resp B/P Pulse Ox O2 Delivery O2 Flow Rate FiO2 08/30/16 10:03 65 08/30/16 09:28 36.7 18 143/74 97 Room Air Exam General: Pleasant, obese, in bed in no acute distress HEENT: PERRL, EOMI, sclera anicteric CV: regular rate and rhythm, pulses equal B/L radial and posterior tibial Pulmonary: clear to auscultation B/L, no wheezing, rhonchi or rales Abd: soft, non-tender, bowel sounds present Extremities: no LE edema, no calf tenderness Neuro: CN II-XII intact, gate normal, normal speech Psych: Appropriate mood and effect . tiglycerides 107 Cholesterol 192 LDL 71 VLDL 21 HDL 99 Ch/HDL ratio 1.94 Test 08/28/16 15:09 08/28/16 19:00 08/29/16 05:35 08/29/16 14:20 Prothrombin Time 9.7sec (8.1-12.5) Prothromb Time International Ratio 0.91ratio Activated Partial Thromboplast Time 25.7sec (22.8-33.0) Magnesium Level 2.0mg/dL (1.6-2.6) Total Bilirubin 0.4mg/dL (0.0-1.2) Aspartate Amino Transf (AST/SGOT) 20U/L (0-50) Alanine Aminotransferase (ALT/SGPT) 18U/L (0-32) Alkaline Phosphatase 133U/L (25-165) Total Protein 7.2g/dL (6.4-8.4) Albumin 4.3g/dL (3.4-5.0) Hold [place] Top Tube Received (Received) Urine Color Yellow (YELLOW) Urine Appearance Clear (CLEAR,HAZY) Urine pH 7.0 (5.0-8.0) Urine Specific [place] 1.030 (1.003-1.035) Urine Protein Negativemg/dL (NEG,TRACE) Urine Glucose (UA) Negativemg/dL (NEGATIVE) Urine Ketones Negativemg/dL (NEGATIVE) Urine Occult Blood Negative (NEGATIVE) Urine Nitrite Negative (NEGATIVE) Urine Bilirubin Negative (NEGATIVE) Urine Urobilinogen Normalmg/dL (NORMAL) Urine Leukocyte Esterase Small (NEGATIVE) Urine RBC 0-2/hpf (0-2) Urine WBC 11-50/hpf (0-5) Urine Epithelial Cells Few/hpf (NONE-MOD) Urine Crystals None seen (NONE SEEN) Urine Bacteria Few/hpf (NONE-FEW) Urine Hyaline Casts None/lpf (NONE) Urine Granular Casts None seen (NONE SEEN) Urine Waxy Casts None seen (NONE SEEN) Urine Red Blood Cell Casts None seen (NONE SEEN) Urine White Blood Cell Casts None seen (NONE SEEN) Urine Mucus None seen (None Seen) Urine Trichomonas None seen (NONE SEEN) Urine Yeast None (NONE SEEN) Urinalysis Comment None Urine Culture Reflexed Indicated Neutrophils (%) (Auto) 68.5% (40-74) Lymphocytes (%) (Auto) 20.9% (14-46) Monocytes (%) (Auto) 7.8% (4-12) Eosinophils (%) (Auto) 2.3% (0-5) Basophils (%) (Auto) 0.3% (0-3) Thyroid Stimulating Hormone (TSH) 4.820uIU/mL (0.450-4.500) Creatine Kinase MB 1.4ng/mL (0.0-5.3) Creatine Kinase MB % % (0.0-5.0) Test 08/29/16 20:40 08/30/16 05:45 Total Creatine Kinase 65U/L (21-215) Troponin T 0.010ug/L (0.0-0.011) White Blood Count 5.8th/mm3 (3.8-10.1) Red Blood Count 4.41mil/mm3 (3.90-5.20) Hemoglobin 13.7g/dL (12.0-15.6) Hematocrit 40.6% (35.0-46.0) Mean Corpuscular Volume 92.1fL (81-100) Mean Corpuscular Hemoglobin 31.1pg (27.0-35.0) Mean Corpuscular Hemoglobin Concent 33.7% (32.0-37.0) Red Cell Distribution Width 12.2% (12.3-15.4) Platelet Count 203bil/L (150-400) Sodium Level 142mEq/L (134-144) Potassium Level 3.9mEq/L (3.5-5.2) Chloride Level 105mEq/L (97-108) Carbon Dioxide Level 23mmol/L (18-29) Blood Urea Nitrogen 11mg/dL (6-24) Creatinine 0.86mg/dL (0.57-1.00) Estimat Glomerular Filtration Rate 97mL/min (>59) Glucose Level 113mg/dL (60-99) Calcium Level 9.3mg/dL (8.5-10.1) Triglycerides Level 107mg/dL (0-149) Cholesterol Level 192mg/dL (100-199) LDL Cholesterol, Calculated 71.600mg/dL (0-99) VLDL Cholesterol 21.400mg/dL HDL Cholesterol 99mg/dL (>39) Cholesterol/HDL Ratio 1.94 (0.0-4.4) Discharge Medications Discharge Medications Cyanocobalamin (Vitamin B12) 500 Mcg Tablet 500 MCG PO DAILY (Reported) Magnesium Amino Acid Chelate (Magnesium) 100 Mg Tablet 100 MG PO DAILY (Reported ) Magnesium Citrate (Magnesium Citrate) 100 Mg Tablet 100 MG PO DAILY (Reported) Metoprolol Succinate ER (Metoprolol Succinate ER) 25 Mg Tab.er.24h 25 MG PO DAILY Prescribed by: DESIRAE HALL, Metoprolol Succinate ER (Metoprolol Succinate ER) 25 Mg Tab.er.24h 25 MG PO DAILY Prescribed by: LINDY BRADLEY DO Multivitamin (Once Daily) 1 Each Tablet 1 EACH PO DAILY (Reported) Potassium Chloride ER (Potassium Chloride ER) 20 Meq Tablet.er 20 MEQ PO DAILY ( Reported) TAKE WITH FOOD As needed Acetaminophen (Acetaminophen) 325 Mg Tablet 650 MG PO Q4H PRN PRN For Pain ( Reported) Albuterol HFA (Proair HFA) 8.5 Gm Hfa.aer.ad 2 PUFFS INHALATION Q4H PRN PRN For Shortness of Breath (Reported) Loratadine (Claritin) 10 Mg Capsule 10 MG PO DAILY PRN PRN For Congestion ( Reported) Propylene Glycol/Peg 400 (Systane Liquid Gel Eye Drops) 15 Ml Drp.lq.gel 2 DROP OP BID PRN PRN For Eye Irritation (Reported) Additional med instructions Please stop the estradiol. It is not recommended unless your symptoms are too bad without the estrogen. We do not think this was a mini stroke (TIA) but rather multiple sclerosis. Continue the metoprolol, but take 1/2 your usual dose. Followup Plan Disposition: Home with family Follow-up plan See above. Discharge Diet: No restrictions Discharge Activity: No restrictions Patient Instructions Please follow up with your primary care physician within the next couple of weeks. We were not able to make a neurology appointment for you, but that needs to be done, hopefully in the next 3 weeks. Call your insurance company to find out who they use. You can also call your primary care physician. [facility] is scheduled out until March. Dr. Jc, in [place], is usually able to see you sooner. I am not familiar with the other neurologists in the area. Follow-up Provider: Mari Cameron MD Follow-up with PCP in: 2 weeks Time spent Greater than 35 minutes Attending Statement The patient was seen and examined together with Dr. Hall on 08/30/16 and I agree with the history, exam and plan as outlined in the note above copies to: Mari Cameron MD, Janice M DO Aug 30, 2016 16:36 Lindy Bradley DO Sep 07, 2016 17:41
== END 2016-08-30 12:10 | disposition home or self-care (01) ==
LOC: SED 14:04 → MPC 17:05
PROVIDERS: ADMIT Hospitalist; ATTEND Hospitalist
DX: G35 Multiple sclerosis (principal); H53.8 Other visual disturbances; R79.89 Other specified abnormal findings of blood chemistry; I10 Essential (primary) hypertension; J30.2 Other seasonal allergic rhinitis; Z90.710 Acquired absence of both cervix and uterus; J45.909 Unspecified asthma, uncomplicated; Z79.51 Long term (current) use of inhaled steroids
CPT/HCPCS: 36415; 70450; 70496; 70498; 70551; 80048; 80053; 80061; 81000; 82550; 82553; 82948; 83036; 83735; 84443; 84484; 85025; 85027; 85610; 85730; 87086; 87088; 92610; 93005; 97161; 99291; G0378; G8996; G8997; G8998; J1644; Q9967